=== PATIENT | male | born 1940 | race Caucasian/White ===

== ENCOUNTER → 2017-02-25 | Outpatient (CLI) | payer OTHER, BC ==
[~2017-02-25] MED LIST: DEPO METHYLPREDNISOLONE 40 MG/ML SDV ONE; DEPO METHYLPREDNISOLONE 80 MG/ML SDV ONE; IOPAMIDOL (ISOVUE 370) 100 ML BTL IV ONE; LIDOCAINE 1% 30 ML SDV ONE; NA BICARBONATE 50 MEQ/50 ML VIAL ONE; ROPIVACAINE HCL 150 MG/30 ML INJ ONE
== END ==
LOC: FIMAGING 12:31
PROVIDERS: ATTEND Orthopaedic Surgery
PROC: 3E0U33Z Introduction of Anti-inflammatory into Joints, Percutaneous Approach (ICD-10-PCS; principal; 2017-02-25)
PROC: 3E0U3BZ Introduction of Anesthetic Agent into Joints, Percutaneous Approach (ICD-10-PCS; principal; 2017-02-25)
DX: M16.11 Unilateral primary osteoarthritis, right hip (principal)
CPT/HCPCS: 20610; J1020; J2795; Q9967; J1030; J1040

== ENCOUNTER 2017-03-26 16:20 | Inpatient (IN) | payer OTHER, BC ==
[~2017-03-26 16:20] MED LIST changes: -DEPO METHYLPREDNISOLONE 40 MG/ML SDV ONE; -DEPO METHYLPREDNISOLONE 80 MG/ML SDV ONE; -IOPAMIDOL (ISOVUE 370) 100 ML BTL IV ONE; -LIDOCAINE 1% 30 ML SDV ONE; -NA BICARBONATE 50 MEQ/50 ML VIAL ONE; -ROPIVACAINE HCL 150 MG/30 ML INJ ONE; +fentaNYL 100 MCG/2 ML INJ IVP ONE
[2017-03-26] MEDS ORDERED: fentaNYL 100 MCG/2 ML INJ ONE (16:37)
--- NOTE | 2017-03-26 16:51 | EDPHY ---
H & P Time Seen by Provider: 03/26/17 16:48 HPI/ROS: Chief complaint. Right hip pain HPI. 68-year-old male with history of osteoarthritis right hip and is scheduled for a hip replacement April 27. Patient had a joint injection of ropivacaine and Depo-Medrol under fluoroscopy P on February 25. He got good relief. However over the month patient's pain has gradually increased. This past week he has had increasing trouble walking. Pain is poorly controlled at this point. Patient has been using acetaminophen at home. He maybe had a fever several days ago. The patient has pain in the right groin that is especially worse with movement. He feels that he has mild swelling but no redness. He has no chest discomfort or shortness of breath. No abdominal pain. No urinary symptoms. Patient has been changing walkers and trying new and different walkers to try to help with balance and pain to ambulate ROS Constitutional. Fever 2-3 days ago Eyes. no problems with vision ENT. no sore throat, no nasal drainage Cardiovascular. no chest pain Respiratory. no shortness of breath, no cough Abdominal. no abdominal pain, no nausea/vomiting, no diarrhea . no problems urinating MS. Right hip pain and trouble walking Skin. no rash Lymph. no swollen glands Neuro. Difficult to walk secondary to hip pain Past Medical/Surgical History: Osteoarthritis, Charcot foot, hypothyroid, left hip arthroplasty Social History: , nonsmoker, no alcohol Smoking Status: Never smoked Physical Exam: General Appearance: Alert well-developed male moderate distress vital signs are stable. Currently afebrile Eyes: Pupils equal and round no pallor or injection. ENT, Mouth: Mucous membranes are moist. Respiratory: There are no retractions, lungs are clear to auscultation. Cardiovascular: Regular rate and rhythm. Gastrointestinal: Abdomen is soft and nontender, no masses, bowel sounds normal. Neurological: Awake and alert, sensory and motor exams grossly normal. Skin: Warm and dry, no rashes. Musculoskeletal: Neck is supple nontender. Extremities pain with movement right hip manifesting as pain in the right groin. There is no obvious swelling or erythema. Psychiatric: Patient is oriented X 3, there is no agitation. 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 Fentanyl for pain initially. Dilaudid for pain ED Course/Re-evaluation: Re-evaluation patient more comfortable after pain medication. The patient, his and I discussed imaging study results, treatment plan including need for admission. They expressed understanding I consulted and discussed the case with Dr. Francis, Orthopedics who will see the patient in consult I consulted and discussed the case with , hospitalist, who agrees to the admission Differential Diagnosis: I considered arthritis, degenerative joint disease. The patient appears to have avascular necrosis and now a fracture of the head of the femur. - Data Points Laboratory Results: Laboratory Results 03/26/17 16:29 03/26/17 16:29 Medications Given: Discontinued Medications Fentanyl (Sublimaze) 100 mcg IVP ONCE ONE Stop: 03/26/17 16:16 Last Admin: 03/26/17 16:20 Dose: 100 mcg Hydromorphone HCl (Dilaudid) 1 mg IVP EDNOW ONE Stop: 03/26/17 17:16 Last Admin: 03/26/17 17:40 Dose: 1 mg Hydromorphone HCl (Dilaudid) 1 mg IVP EDNOW ONE Stop: 03/26/17 20:27 Last Admin: 03/26/17 20:28 Dose: 1 mg Ondansetron HCl (Zofran) 4 mg IVP EDNOW ONE Stop: 03/26/17 19:27 Last Admin: 03/26/17 19:30 Dose: 4 mg Departure - Departure Disposition: [facility] Inpatient Acute Condition: Fair
[2017-03-26] MEDS ORDERED: HYDROmorphONE/DILAUDID 1 MG/ML SYR IVP ONE ×2 (17:15→20:26)
[2017-03-26 17:33] LABS: % IMMATURE GRANULYOCYTES 0.7 % (0.0-1.1); ABSOLUTE IMMATURE GRANULOCYTES 0.06 10^3/uL (0.00-0.10); ADD DIFF? NO; ADD MORPH? NO; ADD SCAN? NO; ATYPICAL LYMPHOCYTE FLAG 0 (0-99); FRAGMENT RBC FLAG 0 (0-99); HEMATOCRIT 43.2 % (40.0-51.0); HEMOGLOBIN 14.7 g/dL (13.7-17.5); LEFT SHIFT FLG 10 (0-99); LIPEMIA HEMOLYSIS FLAG 90 (0-99); MEAN CELL HEMOGLOBIN 29.1 pg (27.9-34.1); MEAN CELL VOLUME 85.4 fL (81.5-99.8); PLATELET CLUMPS FLAG 0 (0-99); PLATELET COUNT 242 10^3/uL (150-400); RED BLOOD CELL COUNT 5.06 10^6/uL (4.40-6.38); RED CELL DISTRIBUTION WIDTH 13.3 % (11.5-15.2)
[2017-03-26 17:37] LABS: ANION GAP 13 mEq/L (8-16); CALCIUM 9.6 mg/dL (8.5-10.4); CARBON DIOXIDE 22 mEq/l (22-31); CHLORIDE 101 mEq/L (97-110); CREATININE 0.9 mg/dL (0.7-1.3); GLOMERULAR FILTRATION RATE > 60; GLUCOSE 105 mg/dL (70-100); POTASSIUM 4.6 mEq/L (3.5-5.2); SODIUM 136 mEq/L (134-144)
[2017-03-26 17:57] LABS: SEDIMENTATION RATE 18 MM/HR (0-20)
[2017-03-26] MEDS ORDERED: ONDANSETRON 4 MG/2 ML VIAL IVP ONE (19:26)
[2017-03-26] MEDS ORDERED: ONDANSETRON 4 MG/2 ML VIAL ONE (19:27)
[2017-03-26] MEDS ORDERED: HYDROmorphONE/DILAUDID 1 MG/ML SYR IVP PRN (19:38)
[2017-03-26] MEDS ORDERED: ONDANSETRON 4 MG/2 ML VIAL IVP PRN (19:38)
--- NOTE | 2017-03-26 20:13 | GHP ---
[f rep st] HISTORY AND PHYSICAL DATE OF ADMISSION: 03/26/2017 CHIEF COMPLAINT: Right hip pain. HISTORY: This patient is a 76-year-old male who had a right hip steroid injection [address] Lowe secondary to osteoarthritis. He has a total hip arthroplasty scheduled with Dr. Francis on April 27. Initially, the steroid injection improved his pain, but subsequently, it is recurring. It has progressively worsened over the last week, and he now has trouble walking. He has severe right groin pain, and it became a crisis in the last 24 hours when he presented to the emergency room. At no point has he ever had any trauma or fall. He is otherwise healthy and without any acute complaints. PAST MEDICAL HISTORY: 1. Charcot foot secondary to infection. 2. Hypothyroidism. 3. Osteoarthritis, status post left hip total arthroplasty, right one is pending. MEDICATIONS: Please see computer record for full detailed list. ALLERGIES: No known drug allergies. SOCIAL HISTORY: No smoking. No alcohol. 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 He lives with his . REVIEW OF SYSTEMS: Complete review of systems obtained. Review of systems negative regarding constitutional, HEENT, GI, pulmonary, cardiovascular, , hematology, skin/musculoskeletal, musculoskeletal, endocrine, psych, except for positives and negatives as under HPI. FAMILY HISTORY: His father of colon cancer in his early 60s. His mother lived to be almost 100. PHYSICAL EXAMINATION: GENERAL: Well-developed, well-nourished male in no acute distress. VITAL SIGNS: Temperature 36.8, pulse 76, blood pressure 127/87 , satting 94% on room air. HEENT: Normal conjunctivae. Pupils reactive to light. ENT: Normal ears and nose. Hearing intact. Normal lips and teeth. Oropharynx moist. NECK: Trachea midline. No thyromegaly. CHEST: Normal respiratory effort. LUNGS: Clear to auscultation bilaterally. CARDIOVASCULAR : Regular rate and rhythm. No murmur. No lower extremity edema. ABDOMEN: Soft, nontender. No hepatosplenomegaly. SKIN: Warm, dry, intact without rash. MUSCULOSKELETAL: His left foot has a Charcot deformity, but no evidence of active infection or erythema or drainage. Strength is 5/5 upper and lower extremities. NEUROLOGIC: Cranial nerves intact. Normal sensation to light touch. PSYCHIATRIC: Alert and oriented x3. Normal mood and affect. Normal judgment and insight. Normal memory. LABORATORY DATA: White count 8.7, hematocrit 43.2, platelets 242. Sodium 136, potassium 4.6, chloride 101, bicarb 22, BUN 20, creatinine 0.9, glucose 105. IMAGING PROCEDURE: Hip x-ray shows acute fracture of the right femoral head. I have discussed this case with Dr. Luis Fernando Vargas, emergency room physician. He has notified Dr. Francis regarding this admission. He will see him in consultation. Dr. Francis thinks that he will do surgery this upcoming week, although it will be a difficult problem, given his recent steroid injection. ASSESSMENT AND PLAN: 1. Right hip fracture, atraumatic, status post steroid injection. Dr. Francis to consult. He will eventually go to surgery, but it is a difficult situation, given his recent steroid injection. For now, will admit to the hospital, administer pain control with IV Dilaudid. 2. Charcot foot secondary to previous infection. His foot currently looks good and at baseline without any active disease. 3. Hypothyroidism. Continue Synthroid. 4. Code Status: He requests DNR. 5. Admission Status: Will admit to inpatient. Greater than 2 midnights required, as this is a complex issue. 6. Deep Venous Thrombosis Prophylaxis: He is high risk. Will place him on subcu Lovenox. I do not anticipate that surgery will be tomorrow, per my discussion with Dr. Vargas. /[id number]/MODL MTDD
[2017-03-26] MEDS ORDERED: HYDROmorphONE/DILAUDID 1 MG/ML SYR ONE (20:23)
[2017-03-26] MEDS: ACETAMINOPHEN 1000 MG PO SCH (21:08)
[2017-03-27] MEDS: oxyCODONE IR 5 MG TAB PO PRN ×5 (02:36→20:47)
[2017-03-27] MEDS: LEVOTHYROXINE 75 MCG TAB PO SCH (06:21)
[2017-03-27] MEDS: ACETAMINOPHEN 1000 MG PO SCH ×3 (09:23→19:23)
[2017-03-27] MEDS: ENOXAPARIN 40 MG/0.4 ML SYR SC SCH ×2 (09:24→14:06)
--- NOTE | 2017-03-27 13:15 | HOSPPROG ---
Hospitalist Progress Note Assessment/Plan: Mr Pineda is a 76 y/o male who had a right hip steroid injection approximately a month ago for osteoarthritis. He is to have surgery w Dr Francis in April. Today is my first encounter w the patient. Chart reviewed. *Right hip fracture s/p recent injection one month ago to have surgery with Dr Francis in April spoke w Dr Francis/ he will see [place] tomorrow trial of toe touch weight bearing will await further input from ortho *Charcot foot secondary to infection *Hypothyroidism Synthroid *DVT prophylaxis: LMWH *Plan: Dr Francis to see Tuesday/ due to recent steroid injection, it would be optimal to wait for 6 weeks to help w post op healing. If Chap[place]ito can't ambulate, Dr Francis will discuss options. Subjective: [place] has ongoing right hip pain, painful to sit up and urinate. Objective: Vital Signs Temp Pulse Resp BP Pulse Ox 36.5 C 72 15 132/76 H 95 03/27/17 08:20 03/27/17 08:20 03/27/17 08:20 03/27/17 08:20 03/27/17 08:20 03/26/17 03/27/17 03/28/17 05:59 05:59 05:59 Intake Total 200 Output Total 720 200 Balance -520 -200 - Physical Exam Constitutional: uncomfortable Eyes: PERRL Ears, Nose, Mouth, Throat: hearing normal Cardiovascular: regular rate and rhythym Respiratory: no respiratory distress Gastrointestinal: normoactive bowel sounds Skin: warm Musculoskeletal: other (right leg externally rotated and shortened), No no muscle tenderness (right hip and right groin area) Neurologic: AAOx3 Psychiatric: interacting appropriately, not anxious ICD10 Worksheet Patient Problems: Problems Problem Status Onset Osteoarthritis of hip Acute
[2017-03-27] MEDS ORDERED: MAGNESIUM HYDROXIDE 30 ML UDCUP PO PRN (14:29)
[2017-03-27] MEDS ORDERED: BISACODYL 10 MG SUPP PR PRN (14:29)
[2017-03-27] MEDS ORDERED: LACTULOSE 20 GM/30 ML UDCUP PO PRN (14:29)
[2017-03-27] MEDS: POLYETHYLENE GLYCOL 3350 17 GM PKT PO SCH (15:46)
[2017-03-27] MEDS: SENNOSIDES/DOCUSATE SODIUM TAB PO SCH (19:24)
[2017-03-28] MEDS: oxyCODONE IR 5 MG TAB PO PRN ×5 (02:13→22:16)
[2017-03-28] MEDS: LEVOTHYROXINE 75 MCG TAB PO SCH (05:25)
[2017-03-28] MEDS: SENNOSIDES/DOCUSATE SODIUM TAB PO SCH ×2 (08:16→20:50)
--- NOTE | 2017-03-28 09:41 | HOSPPROG ---
Hospitalist Progress Note Assessment/Plan: Mr Pineda is a 76 y/o male who had a right hip steroid injection approximately a month ago for osteoarthritis. Pain has worsened and he was admitted for further care. *Right hip fracture to have surgery tomorrow w Dr Francis *Charcot foot secondary to infection *Hypothyroidism Synthroid *DVT prophylaxis: LMWH *Plan: NPO after midnight/ hold LMWH, surgery in a.m. Subjective: [place] has no pain as long as he doesn't move. Objective: Vital Signs Temp Pulse Resp BP Pulse Ox 36.8 C 68 16 120/80 93 03/28/17 07:47 03/28/17 07:47 03/28/17 07:47 03/28/17 07:47 03/28/17 07:47 03/27/17 03/28/17 03/29/17 05:59 05:59 05:59 Intake Total 200 1850 Output Total 720 2300 Balance -520 -450 - Physical Exam Constitutional: no apparent distress, appears nourished, not in pain Eyes: PERRL Ears, Nose, Mouth, Throat: hearing normal Cardiovascular: regular rate and rhythym, no murmur, rub, or gallop Respiratory: no respiratory distress Gastrointestinal: normoactive bowel sounds Skin: warm Musculoskeletal: muscular tenderness Neurologic: AAOx3 Psychiatric: interacting appropriately ICD10 Worksheet Patient Problems: Problems Problem Status Onset Osteoarthritis of hip Acute
[2017-03-28] MEDS: ACETAMINOPHEN 1000 MG PO SCH ×3 (10:41→20:29)
[2017-03-28] MEDS: ENOXAPARIN 40 MG/0.4 ML SYR SC SCH ×2 (10:43→10:44)
[2017-03-28] MEDS: POLYETHYLENE GLYCOL 3350 17 GM PKT PO SCH (10:57)
--- NOTE | 2017-03-29 00:44 | GCON ---
[f rep st] CONSULTATION ORTHOPEDIC CONSULTATION REASON FOR CONSULTATION: For evaluation of right hip pain. HISTORY OF PRESENT ILLNESS: The patient is a 76-year-old male well known to me. I provided left hi p replacement 1-2 years ago, has done very well, is, actually, currently on my schedule for a right total hip replacement next month. The patient had a steroid injection approximately 1 month ago, an d then has had increasing pain in the right hip for the past week. He is unable to bear weight for the last couple days, and question whether we should proceed with right total hip arthroplasty due t o intractable pain. The patient has no complaints of any other extremities. Has not had any falls. Denies any trauma. He denies any fevers, chills. PAST MEDICAL HISTORY: Significant for Charcot foot. He has hypothyroidism, osteoarthritis, status post left total hip arthroplasty. MEDICATIONS: Please see computer list. ALLERGIES: No known drug allergies. PHYSICAL EXAMINATION: GENERAL APPEARANCE: The patient is pleasant and cooperative for exam. VITAL SIGNS: Stable. EXTREMITIES: His right lower extremity is felt to be slightly shortened, external ly rotated. He has pain with range of motion. Neurovascularly intact. IMAGING: X-rays are reviewed, which show the displaced femoral head fracture. ASSESSMENT AND PLAN: The patient is a 76-year-old male with a right displaced femoral head fracture , secondary to complication to injection, with possible underlying avascular necrosis with his osteo arthritis. Discussed risks of infection with patient due to his recent cortisone injection, but in light of his inability to mobilize, I recommend proceeding with a right total hip arthroplasty marii manrique, 03/29/2017. This is currently scheduled for 7 a.m. Risks and benefits were discussed with hernan kim including bleeding, infection, damage to nerves and vessels, need for further surgery, risk of blood clots, blood clots going to the lungs, rare things like stroke, heart attack, and , in ad dition to hip replacement dislocation, fracture, and leg length change. The patient expressed under standing, and informed consent was obtained. /[id number]/MODL
[2017-03-29] MEDS: oxyCODONE IR 5 MG TAB PO PRN ×3 (02:19→19:43)
[2017-03-29] MEDS ORDERED: TRANEXAMIC ACID 3,000 MG in NS 50 ML IRR ONE (06:00)
[2017-03-29] MEDS ORDERED: ROPIVACAINE 0.2% 80 MG, EPINEPHrine 0.2 MG, KETOROLAC TROMETHAMINE 30 MG in BAG 0 ML IU ONE (06:00)
[2017-03-29] MEDS ORDERED: ACETAMINOPHEN 325 MG TAB PO ONE (06:00)
[2017-03-29] MEDS ORDERED: FAMOTIDINE 20 MG TAB PO ONE (06:00)
[2017-03-29] MEDS ORDERED: ceFAZolin 2 GM/DEXTROSE 100 ML IV ONE (06:00)
[2017-03-29] MEDS ORDERED: TRANEXAMIC ACID 3,000 MG/50 ML BAG IRR ONE (06:54)
[2017-03-29] MEDS ORDERED: PROPOFOL 200 MG/20 ML VIAL ONE ×2 (07:04)
[2017-03-29] MEDS ORDERED: fentaNYL 100 MCG/2 ML INJ ONE ×3 (07:04→09:25)
[2017-03-29] MEDS ORDERED: LIDOCAINE 2% 100 MG/5 ML SYR ONE (07:06)
[2017-03-29] MEDS ORDERED: METOCLOPRAMIDE 10 MG/2 ML VIAL IVP PRN (07:17)
[2017-03-29] MEDS ORDERED: diphenhydrAMINE 25 MG CAP PO PRN (07:17)
[2017-03-29] MEDS ORDERED: ONDANSETRON 4 MG/2 ML VIAL IVP PRN (07:17)
[2017-03-29] MEDS ORDERED: PHARMACY PAIN CONSULT 1 EA MISC PRN (07:17)
[2017-03-29] MEDS ORDERED: PROMETHAZINE HCL 25 MG SUPPR PR PRN (07:17)
[2017-03-29] MEDS ORDERED: CYCLOBENZAPRINE 10 MG TAB PO PRN (07:17)
[2017-03-29] MEDS ORDERED: TEMAZEPAM 15 MG CAP PO PRN (07:17)
[2017-03-29] MEDS ORDERED: POLYETHYLENE GLYCOL 3350 17 GM PKT PO PRN (07:17)
[2017-03-29] MEDS ORDERED: ONDANSETRON DISINTEGRATING 4 MG TAB PO PRN (07:17)
[2017-03-29] MEDS ORDERED: DIPHENOXYLATE/ATROPINE LOMOTIL 1 TAB PO PRN (07:17)
[2017-03-29] MEDS ORDERED: LR 1,000 ML IV SCH (07:30)
[2017-03-29] MEDS ORDERED: HYDROmorphONE/DILAUDID 2 MG/ML INJ ONE (07:40)
[2017-03-29] MEDS ORDERED: DEXAMETHASONE 4 MG/ML VIAL ONE (07:45)
[2017-03-29] MEDS ORDERED: ONDANSETRON 4 MG/2 ML VIAL ONE ×3 (07:45→09:35)
[2017-03-29] MEDS ORDERED: POVIDONE-IODINE 20 ML in SODIUM CL IRRIG SOLUTION 500 ML IRR ONE (08:00)
[2017-03-29] MEDS ORDERED: CHLORHEXIDINE GLUC HIBICLENS 118 ML BTL TP ONE (08:00)
--- NOTE | 2017-03-29 08:50 | POSTOPPROG ---
Post Op Note Date of Operation: 03/29/17 Surgeon: Pamella Francis City Councilman: Lucille Francis PAc Anesthesiologist: Loraine Anesthesia: LMA Pre-op Diagnosis: R femoral head fx Post-op Diagnosis: same Indication: pain Procedure: R BO Findings: femoral head fx Inf/Abcess present in the surg proc area at time of surgery?: No EBL: 100-500
[2017-03-29] MEDS: ACETAMINOPHEN 1000 MG PO SCH ×3 (11:38→21:32)
[2017-03-29] MEDS: SENNOSIDES/DOCUSATE SODIUM TAB PO SCH ×2 (11:38→20:17)
[2017-03-29] MEDS: POLYETHYLENE GLYCOL 3350 17 GM PKT PO SCH (11:38)
[2017-03-29] MEDS: ACETAMINOPHEN 325 MG TAB PO SCH ×3 (13:24→22:07)
[2017-03-29] MEDS: LEVOTHYROXINE 75 MCG TAB PO SCH (13:24)
[2017-03-29] MEDS: ceFAZolin 2 GM/DEXTROSE 100 ML IV SCH ×2 (14:07→21:32)
[2017-03-29 15:50] LABS: % IMMATURE GRANULYOCYTES 0.6 % (0.0-1.1); ABSOLUTE IMMATURE GRANULOCYTES 0.07 10^3/uL (0.00-0.10); ADD DIFF? NO; ADD MORPH? NO; ADD SCAN? NO; ATYPICAL LYMPHOCYTE FLAG 0 (0-99); FRAGMENT RBC FLAG 0 (0-99); HEMATOCRIT 41.9 % (40.0-51.0); LEFT SHIFT FLG 10 (0-99); LIPEMIA HEMOLYSIS FLAG 80 (0-99); MEAN CELL HEMOGLOBIN 28.9 pg (27.9-34.1); MEAN CELL HEMOGLOBIN CONCENTR. 33.4 g/dL (32.4-36.7); MEAN CELL VOLUME 86.6 fL (81.5-99.8); MEAN PLATELET VOLUME 10.1 fL (8.7-11.7); PLATELET CLUMPS FLAG 0 (0-99); PLATELET COUNT 235 10^3/uL (150-400); RED BLOOD CELL COUNT 4.84 10^6/uL (4.40-6.38); RED CELL DISTRIBUTION WIDTH 13.2 % (11.5-15.2)
[2017-03-29 16:03] LABS: ANION GAP 9 mEq/L (8-16); CALCIUM 8.7 mg/dL (8.5-10.4); CARBON DIOXIDE 23 mEq/l (22-31); CHLORIDE 98 mEq/L (97-110); CREATININE 0.7 mg/dL (0.7-1.3); GLOMERULAR FILTRATION RATE > 60; GLUCOSE 152 mg/dL (70-100); SODIUM 130 mEq/L (134-144)
[2017-03-29] MEDS ORDERED: PETROLAT,WHT/MIN OIL/SOD CHL 3.5 GM OPHT.OINT RTEYE PRN (16:28)
[2017-03-29] MEDS: PETROLAT,WHT/MIN OIL/SOD CHL 3.5 GM OPHT.OINT RTEYE PRN ×2 (17:09→20:20)
--- NOTE | 2017-03-29 17:09 | HOSPPROG ---
Hospitalist Progress Note Assessment/Plan: Mr Pineda is a 76 y/o male who had a right hip steroid injection approximately a month ago for osteoarthritis. Pain has worsened and he was admitted for further care. *Right hip fracture POD #0 for TKA pain was well managed when I evaluated him *hyponatremia recheck labs in a.m. *right eye pain occurred post op lubricant ordered *Charcot foot secondary to infection *Hypothyroidism Synthroid *DVT prophylaxis: LMWH +athrombic pumps *Plan: follow labs in a.m./ dc fluids since taking po. Subjective: [place] is c/o right eye pain. Objective: Vital Signs Temp Pulse Resp BP Pulse Ox 36.6 C 64 14 114/59 L 94 03/29/17 15:15 03/29/17 15:15 03/29/17 15:15 03/29/17 15:15 03/29/17 15:15 Laboratory Results 03/29/17 15:25 03/29/17 15:25 03/28/17 03/29/17 03/30/17 05:59 05:59 05:59 Intake Total 1850 1300 2500 Output Total 2300 820 975 Balance -394 526 9480 - Physical Exam Constitutional: no apparent distress Eyes: other (r eye sclera reddened and painful to the patient/no vision changes) Ears, Nose, Mouth, Throat: hearing normal Cardiovascular: regular rate and rhythym Respiratory: no respiratory distress Gastrointestinal: normoactive bowel sounds Skin: warm Musculoskeletal: muscular tenderness (hip) Neurologic: AAOx3, sensation intact bilaterally, pronator drift Psychiatric: not anxious ICD10 Worksheet Patient Problems: Problems Problem Status Onset Osteoarthritis of hip Acute
[2017-03-29] MEDS: ASPIRIN 325 MG TAB PO SCH (20:17)
[2017-03-29] MEDS: FAMOTIDINE 20 MG TAB PO SCH (20:18)
--- NOTE | 2017-03-29 22:37 | GOP ---
[f rep st] OPERATIVE REPORT DATE OF OPERATION: 03/29/2017 SURGEON: Andrew Francis MD OPERATIONS ASST: ZEINAB Goss ANESTHESIA: Spinal. PREOPERATIVE DIAGNOSIS: Right hip osteoarthritis and femoral head fracture. POSTOPERATIVE DIAGNOSIS: Right hip osteoarthritis and femoral head fracture. PROCEDURE PERFORMED: Right total hip arthroplasty with x-ray. FINDINGS: ESTIMATED BLOOD LOSS: 200 cc. INDICATIONS: The patient has a fracture of the hip which has failed medical management. The patient understands the treatment options including continued non-operative care and has selected surgical intervention. The patient has decided to undergo total hip arthroplasty via the direct anterior approach, understanding the risks of the procedure including, but not limited to, neurovascular injury, infection, persistent pain, component wear and loosening, deep venous thrombosis, pulmonary embolism, limb length inequality, hip instability (including dislocation), and intra-operative fractures. DESCRIPTION OF PROCEDURE: After proper identification of the patient including verification and marking the surgical site, the patient was brought to the operating room and placed in the supine position. All bony prominences were well padded. Anesthesia was induced without complication and intravenous prophylactic antibiotics were administered prior to skin incision. The operative leg was placed in the Trumpf Arch table extension and the well leg in a Yellofin leg cottrell. The patient was prepped and draped in the usual sterile fashion. The C-arm was draped for intra-operative fluoroscopy to check acetabular position, femoral component position including leg length and femoral offset. Attention was then drawn to surgical exposure of the hip. An incision was made with a #10 Bard Toño blade starting 3 cm lateral and 3 cm distal to the anterior superior iliac spine measuring 8-10 cm and coursing distally toward the greater trochanter. The skin and subcutaneous tissues were divided sharply down to the fascia анна. The fascia анна was incised in line with the skin incision exposing the underlying tensor fascia анна muscle. The muscle was bluntly elevated from the fascia and the first extracapsular Cobra retractor was placed laterally at the junction of the superior femoral neck and greater trochanter. The lateral femoral circumflex vessels were identified, cauterized , and divided with the Aquamantys bipolar cautery. The deep investing fascia of the TFL was divided to allow proper mobilization of the muscle preventing damage during the retraction. The reflected head of the rectus femoris muscle was elevated off the anterior hip capsule and a medial Cobra retractor was placed just proximal to the lesser trochanter. The anterior capsulotomy was made sharply from the superolateral acetabulum to the saddle junction of the superior femoral neck and greater trochanter, then coursing inferomedial towards the lesser trochanter. The retractors were then placed in the intracapsular position for femoral neck osteotomy. Corresponding to pre-operative templating, the osteotomy was made with the oscillating saw carefully protecting the greater trochanter and soft tissues. The femoral head was removed from the acetabulum with a corkscrew and confirmed to be fracutured. The Arch table extension was then placed in 40 degrees external rotation. Attention was then drawn to the acetabular preparation. After placement of the anterior and posterior Cobra retractors outside the labrum and intracapsular, the circumferential labrum was removed sharply. The foveal contents were then removed and hemostasis obtained with cautery. The first reamer selected was sized using the removed femoral head. Reaming began with medialization and then commenced in 2 mm increments at 45 degrees of abduction and 15 degrees of anteversion using fluoroscopic navigation. Reaming ceased 1 mm less than the definitive acetabular component and corresponded to the pre-operative templating. The final acetabular component was inserted using fluoroscopy to achieve proper orientation yielding excellent purchase and stability in the acetabulum. The final acetabular liner was then placed and its seating confirmed. Attention was then turned to the femur. The Arch table extension was placed in extension and adduction, delivering the osteotomized femoral neck into the wound. A 2-pronged femoral elevator was placed at the calcar and another at the tip of the greater trochanter. The posterolateral capsule was released with cautery allowing mobilization of the femur lateral and anterior for preparation. The external rotators were visualized and preserved. A curette and rongeur were used to open the starting point for broaching. Serial broaching started with the #0 broach and ended with the broach that exhibited excellent fit in the proximal femur. A change in pitch during mallet strikes was accompanied by the inability to advance the broach any further. The trial reduction was performed and fluoroscopic navigation was utilized to check limb length. Adjustments were made to equalize limb length accordingly. After the final trials were accepted they were removed and the wound was copiously lavaged. The femoral component was seated to the same depth as the final broach and the femoral head was impacted onto the clean trunnion. The hip was then reduced for the final time and once more fluoroscopy was used to check that limb length equality was achieved. The wound was irrigated and closed in layers, the fascia анна with 2-0 Quill, the subcutaneous tissue with 2-0 Quill, and the skin with Dermabond. Sterile dressings were applied. Final sharps and sponge counts were accurate. The patient was then transferred to a hospital bed and brought to the recovery room in stable condition. IMPLANTS: Accolade II, size 7, at 127. Acetabular component, 60 mm Tritanium. The liner is a Trident X3 36 mm. The head is a Biolox Delta 36 mm +7.5. /[id number]/MODL MTDD
[2017-03-30] MEDS: oxyCODONE IR 5 MG TAB PO PRN ×3 (03:16→18:45)
[2017-03-30] MEDS: ACETAMINOPHEN 1000 MG PO SCH (03:44)
[2017-03-30 05:05] LABS: HEMATOCRIT 37.4 % (40.0-51.0); HEMOGLOBIN 12.6 g/dL (13.7-17.5)
[2017-03-30 05:25] LABS: ANION GAP 9 mEq/L (8-16); CALCIUM 8.5 mg/dL (8.5-10.4); CARBON DIOXIDE 24 mEq/l (22-31); CHLORIDE 96 mEq/L (97-110); CREATININE 0.8 mg/dL (0.7-1.3); GLOMERULAR FILTRATION RATE > 60; GLUCOSE 136 mg/dL (70-100); POTASSIUM 4.4 mEq/L (3.5-5.2); SODIUM 129 mEq/L (134-144)
[2017-03-30] MEDS: ACETAMINOPHEN 325 MG TAB PO SCH ×4 (05:41→20:09)
--- NOTE | 2017-03-30 08:46 | SOAPPROG ---
SOAP Progress Note Assessment/Plan: Assessment: [place] is POD 1 s/p R BO ant approach pain management: pain well controlled on oral pain meds VTE ppx: recommend stopping lovenox and starting aspirin 325 mg daily for three weeks. cont thigh high SPIKE hose Anemia: level expected initially postop. asymptomatic Activity precautions: WBAT, NO active ABDuction, NO Ex Rot of leg past 60, must use walker for 6 weeks post op D/c planning: d/c to home once released from PT Plan: 03/30/17 08:44 Subjective: Patient is resting comfortably. expressed some concern that was worried about mobility at home. denies SOB, chest pain and N/V. Objective: Vital Signs Temp Pulse Resp BP Pulse Ox 36.9 C 72 15 138/64 H 90 L 03/30/17 07:44 03/30/17 07:44 03/30/17 07:44 03/30/17 07:44 03/30/17 07:44 Laboratory Results 03/30/17 04:46 03/30/17 04:46 03/29/17 03/30/17 03/31/17 05:59 05:59 05:59 Intake Total 1300 3565 Output Total 820 2325 Balance 480 1240 RLE: incision dressing is clean and dry, NVI, +pf/df ICD10 Worksheet Patient Problems: Problems Problem Status Onset Osteoarthritis of hip Acute
[2017-03-30] MEDS: ASPIRIN 325 MG TAB PO SCH (09:44)
[2017-03-30] MEDS: FAMOTIDINE 20 MG TAB PO SCH ×2 (09:44→20:19)
[2017-03-30] MEDS: SENNOSIDES/DOCUSATE SODIUM TAB PO SCH ×2 (09:45→20:19)
[2017-03-30] MEDS: POLYETHYLENE GLYCOL 3350 17 GM PKT PO SCH (09:50)
[2017-03-30] MEDS: LEVOTHYROXINE 75 MCG TAB PO SCH (12:28)
--- NOTE | 2017-03-30 15:51 | HOSPPROG ---
Hospitalist Progress Note Assessment/Plan: Mr Pineda is a 76 y/o male who had a right hip steroid injection approximately a month ago for osteoarthritis. Pain has worsened and he was admitted for further care. *Right hip fracture POD #1 for TKA pain was well managed *hyponatremia low urine NA tsh stable encourage more oral solute/ will order ensure tid with meals *right eye pain occurred post op lubricant ordered resolved *Charcot foot secondary to infection *Hypothyroidism Synthroid *DVT prophylaxis: LMWH +athrombic pumps *Plan: follow labs in a.m./ he will likely be dc home with home care tomorrow. Subjective: [place] is feeling well overall. Objective: Vital Signs Temp Pulse Resp BP Pulse Ox 36.4 C 77 14 119/73 90 L 03/30/17 13:09 03/30/17 13:09 03/30/17 13:09 03/30/17 13:09 03/30/17 13:09 Laboratory Results 03/30/17 04:46 03/30/17 04:46 03/29/17 03/30/17 03/31/17 05:59 05:59 05:59 Intake Total 1300 3565 Output Total 820 2325 400 Balance 480 1240 -400 - Physical Exam Constitutional: no apparent distress, appears nourished, No not in pain (minmal right hip) Eyes: PERRL Ears, Nose, Mouth, Throat: hearing normal Cardiovascular: regular rate and rhythym Respiratory: no respiratory distress Gastrointestinal: normoactive bowel sounds Skin: warm, normal color Musculoskeletal: generalized weakness, No no muscle tenderness Neurologic: AAOx3 Psychiatric: interacting appropriately, not anxious ICD10 Worksheet Patient Problems: Problems Problem Status Onset Closed fracture head of femur Acute Primary localized osteoarthritis of right hip Acute Osteoarthritis of hip Acute
[2017-03-30] MEDS: ENOXAPARIN 40 MG/0.4 ML SYR SC SCH (17:55)
[2017-03-31] MEDS: oxyCODONE IR 5 MG TAB PO PRN ×2 (03:28→08:12)
[2017-03-31 05:47] LABS: % IMMATURE GRANULYOCYTES 1.1 % (0.0-1.1); ADD DIFF? NO; ADD MORPH? NO; ADD SCAN? NO; ATYPICAL LYMPHOCYTE FLAG 0 (0-99); FRAGMENT RBC FLAG 0 (0-99); HEMATOCRIT 37.2 % (40.0-51.0); HEMOGLOBIN 12.4 g/dL (13.7-17.5); LEFT SHIFT FLG 10 (0-99); LIPEMIA HEMOLYSIS FLAG 80 (0-99); MEAN CELL HEMOGLOBIN 28.7 pg (27.9-34.1); MEAN CELL HEMOGLOBIN CONCENTR. 33.3 g/dL (32.4-36.7); MEAN CELL VOLUME 86.1 fL (81.5-99.8); MEAN PLATELET VOLUME 10.6 fL (8.7-11.7); PLATELET CLUMPS FLAG 0 (0-99); PLATELET COUNT 252 10^3/uL (150-400); RED BLOOD CELL COUNT 4.32 10^6/uL (4.40-6.38); RED CELL DISTRIBUTION WIDTH 13.2 % (11.5-15.2)
[2017-03-31 05:50] LABS: ANION GAP 10 mEq/L (8-16); CALCIUM 8.4 mg/dL (8.5-10.4); CARBON DIOXIDE 24 mEq/l (22-31); CHLORIDE 99 mEq/L (97-110); CREATININE 0.8 mg/dL (0.7-1.3); GLOMERULAR FILTRATION RATE > 60; GLUCOSE 99 mg/dL (70-100); POTASSIUM 4.6 mEq/L (3.5-5.2); SODIUM 133 mEq/L (134-144)
[2017-03-31] MEDS: LEVOTHYROXINE 75 MCG TAB PO SCH (06:23)
[2017-03-31 07:51] VITALS: BP 122/63; PULSE 81; RESP 18; TEMP 98; O2SAT 92
[2017-03-31] MEDS: FAMOTIDINE 20 MG TAB PO SCH (08:13)
[2017-03-31] MEDS: ASPIRIN 325 MG TAB PO SCH (08:13)
[2017-03-31] MEDS: ENOXAPARIN 40 MG/0.4 ML SYR SC SCH (08:16)
[2017-03-31] MEDS: POLYETHYLENE GLYCOL 3350 17 GM PKT PO SCH (08:40)
[2017-03-31] MEDS: SENNOSIDES/DOCUSATE SODIUM TAB PO SCH (08:41)
--- NOTE | 2017-03-31 10:13 | PDIAF ---
- Diagnosis Diagnosis: hip fx Code Status: Do Not Resuscitate - Medication Management Discharge Medications: Medications to Continue on Transfer Levothyroxine [Synthroid 75 mcg (*)] 75 mcg PO DAILY06 01/31/15 [Last Taken 05/07 75 mcg] Acetaminophen [Tylenol 325mg (*)] 650 mg PO Q6HRS #0 tab 03/31/17 [Last Taken Unknown] Aspirin [Aspirin 325 mg (*)] 325 mg PO DAILY tab 03/31/17 [Last Taken Unknown] Polyethylene Glycol 3350 [Miralax 17 gm (*)] 17 gm PO DAILY PRN #0 pkt 03/31/17 [Last Taken Unknown] Sennosides/Docusate Sodium [Senokot-S] 1 - 2 tab PO BID tab 03/31/17 [Last Taken Unknown] celeCOXIB [Celebrex (*)] 200 mg PO DAILY #14 cap 03/31/17 [Last Taken Unknown] oxyCODONE IR [Oxycodone Ir (*)] 5 - 10 mg PO Q4 PRN #14 tab 03/31/17 [Last Taken Unknown] Discharge Medications: Refer to the Discharge Home Medication list for PRN reason. PICC Care - Routine: N/A - Orders Services needed: Physical Therapy, Occupational Therapy Diet Recommendation: no restrictions on diet Diet Texture: Regular Texture Diet - Follow Up Care Current Providers and Referrals: Taty Hernandes MD [Primary Care Provider] - As per Instructions
--- NOTE | 2017-03-31 12:37 | SOAPPROG ---
SOAP Progress Note Assessment/Plan: Assessment: Juan is POD 2 s/p R BO ant approach pain management: pain well controlled on oral pain meds VTE ppx: recommend stopping lovenox and starting aspirin 325 mg daily for three weeks. cont thigh high SPIKE hose Anemia: level expected initially postop. asymptomatic Activity precautions: WBAT, NO active ABDuction, NO Ex Rot of leg past 60, must use walker for 6 weeks post op D/c planning: d/c to home with home health once released from PT Plan: 03/30/17 08:44 03/31/17 12:36 Subjective: juan is doing well today Objective: Vital Signs Temp Pulse Resp BP Pulse Ox 36.7 C 81 18 122/63 H 92 03/31/17 07:50 03/31/17 07:50 03/31/17 07:50 03/31/17 07:50 03/31/17 07:50 Laboratory Results 03/31/17 05:08 03/31/17 05:08 03/30/17 03/31/17 04/01/17 05:59 05:59 05:59 Intake Total 3565 1500 Output Total 2325 900 Balance 1240 600 RLE: incision dressing is clean and dry, NVI, +pf/df ICD10 Worksheet Patient Problems: Problems Problem Status Onset Closed fracture head of femur Acute Primary localized osteoarthritis of right hip Acute Osteoarthritis of hip Acute
--- NOTE | 2017-03-31 13:56 | GDS ---
[f rep st] DISCHARGE SUMMARY DISCHARGE DIAGNOSES: 1. Right total hip arthroplasty. 2. Right hip fracture. 3. Hyponatremia. 4. Charcot foot history. 5. History of hypothyroidism. CONSULTATIONS: Dr. Francis of Orthopedics. PHYSICAL EXAM: GENERAL: The patient is alert. VITAL SIGNS: Afebrile at 36.7, pulse is 81, respir atory rate is 18, blood pressure is 122/63. He is saturating 92% on room air. I have seen and evaluated the patient on the day of discharge. HOSPITAL COURSE: The patient is a 76-year-old male who had a history of right hip pain. He present ed to the emergency room with complaints of progressing hip pain and was noted to have: 1. Right hip fracture. This is atraumatic in nature and status post steroid injection. During thi s hospitalization, he received a consultation from Dr. Francis. Surgical intervention was perform ed with a right total hip arthroplasty. The patient is doing well in the postoperative setting. He has been evaluated by Physical Therapy, as well as Occupational Therapy. 2. Hyponatremia. This was stable prior to disposition. 3. History of hypothyroidism. His medications have been continued. DISPOSITION: The patient will be discharged home with home health care, physical therapy and occupa tional therapy. I have reviewed his disposition with the bottle caser, as well as the patient and h is family; they are in agreement with this plan. Followup will be with Dr. Francis in the outpatient setting, as well as the patient's primary care physician. There are no pending studies. DISCHARGE MEDICATIONS: Please refer to EMR form. I have not provided the patient prescriptions exc ept for the notable Celebrex, as well as oxycodone IR. He will continue aspirin daily for DVT proph ylaxis as recommended by Dr. Francis. I have spent greater than 35 minutes in the care, coordination, and management of patient's disposit ion. /[id number]/MODL
== END 2017-03-31 12:54 | disposition home health service (06) | DRG 470 ==
LOC: EDUNIT# → F3N 20:39
PROVIDERS: ADMIT Internal Medicine; ATTEND Internal Medicine
PROC: 0SR904Z Replacement of Right Hip Joint with Ceramic on Polyethylene Synthetic Substitute, Open Approach (ICD-10-PCS; principal; 2017-03-29 07:15)
DX: M84.75 Atypical femoral fracture (principal); T38.0X5A Adverse effect of glucocorticoids and synthetic analogues, initial encounter; A52.16 Charcot's arthropathy (tabetic); E87.1 Hypo-osmolality and hyponatremia; H57.11 Ocular pain, right eye; M16.11 Unilateral primary osteoarthritis, right hip; E03.9 Hypothyroidism, unspecified; Z96.642 Presence of left artificial hip joint; Z66 Do not resuscitate
CPT/HCPCS: 97116-GP; 97161-GP; 97164-GP; 97165-GO; 97168-GO; 97530-GO; 97530-GP; G8978-GP-CJ; G8978-GP-CK; G8979-GP-CI; G8980-GP-CI; G8987-GO-CI; G8987-GO-CJ; G8987-GO-CK; G8988-GO-CI; G8989-GO-CI; J0171; J0690; J1100; J1170; J1650; J1885; J2001; J2405; J2704; J2795; J3010

== ENCOUNTER 2017-04-14 16:43 | Inpatient (IN) | payer OTHER, BC ==
--- NOTE | 2017-04-14 17:09 | EDPHY ---
H & P HPI/ROS: CHIEF COMPLAINT: Left foot infection HISTORY OF PRESENT ILLNESS: The patient is a 76-year-old male, sent here by Dr. Clemente's office for left foot infection. The patient developed swelling to the left foot 4 days ago. The swelling started to extend up the left leg. He developed erythema and now has an open wound to the plantar aspect of his greater toe. The patient has had intermittent chills for the past few days. He has history of cellulitis to his left leg in 2011 and has not had an issue since. The patient had a right hip replacement two weeks ago and reports no further pain to the right leg. He denies shortness of breath or cough. REVIEW OF SYSTEMS: A comprehensive 10 point review of systems is otherwise negative aside from elements mentioned in the history of present illness. Past Medical/Surgical History: Left hip replacement. Right hip replacement 2 weeks ago. Left foot cellulitis 2011. Hypothyroid. Osteoarthritis. Social History: . Smoking Status: Never smoked Physical Exam: General Appearance: Alert, pleasant Eyes: Pupils equal and round, no conjunctival pallor or injection ENT, Mouth: Mucous membranes moist Neck: Normal inspection Respiratory: Lungs are clear to auscultation Cardiovascular: Regular rate and rhythm Gastrointestinal: Abdomen is soft and non-tender Neurological: A&O, nonfocal, normal gait Skin: Warm and dry, no rash Extremities: Erythema on the dorsum of the left foot extends up to the lower leg. First toe with open wound to the plantar aspect. diffuse swelling of the entire lower leg. Psychiatric: Mood and affect normal Constitutional: Initial Vital Signs Temperature (C) 37 C 04/14/17 16:49 Heart Rate 67 04/14/17 16:49 Respiratory Rate 14 04/14/17 16:49 Blood Pressure 124/71 H 04/14/17 16:49 O2 Sat (%) 94 04/14/17 16:49 O2 Delivery Mode Room Air Allergies/Adverse Reactions: No Known Allergies Allergy (Verified 05/07/12 08:21) Home Medications: Medication Instructions Recorded Acetaminophen [Tylenol ES 500 mg 500 mg PO BID PRN 04/14/17 (*)] Aspirin [Aspirin 325 mg (*)] 325 mg PO DAILY 04/14/17 Herbals/Supplements -Info Only 1 ea PO DAILY 04/14/17 Levothyroxine [Synthroid 75 mcg 75 mcg PO DAILY@03 04/14/17 (*)] Medical Decision Making ED Course/Re-evaluation: The patient was sent by Dr. Clemente for left foot infection. He had right hip replacement two weeks ago with no complications. Over the past 4 days patient has noticed increased swelling, redness, and pain to the left foot and leg. Patient's foot appears cellulitic. On exam he has erythema on the dorsum of the left foot extends up to the lower leg. First toe has open wound to the plantar aspect. Diffuse swelling of the entire lower leg. Plan for ultrasound to look for DVT. MRI of the left foot ordered to rule out a deep infection. The patient does not meet SIRS criteria. 5:30 p.m.: I consulted the hospitalist team, the patient will be admitted to Dr. Anthony. Blood cultures drawn and Ancef 1 g IV given. The patient remained stable throughout his emergency department stay. Differential Diagnosis: Differential diagnosis includes though not limited to cellulitis, osteomyelitis , abscess, DVT, sepsis. - Data Points Laboratory Results: Laboratory Results 04/14/17 17:03 04/14/17 17:03 Medications Given: Discontinued Medications Furosemide (Lasix Injection) 20 mg IVP ONCE ONE Stop: 04/14/17 19:26 Last Admin: 04/14/17 19:44 Dose: 20 mg Cefazolin Sodium/Dextrose (Ancef 1 Gm (Premix)) 50 mls @ 200 mls/hr IV EDNOW ONE PRN Reason: Protocol Stop: 04/14/17 17:24 Last Admin: 04/14/17 17:53 Dose: 50 mls Departure - Departure Disposition: [facility] Acute Clinical Impression: Cellulitis of left foot Condition: Fair Report Scribed for: Shayla Renee Report Scribed by: Rosetta Moncada Date of Report: 04/14/17 Time of Report: 17:10 Physician Review and Approval Statement: 04/14/17 17:10 Portions of this note were transcribed by a medical lab technician. I personally performed the history, physical exam, and medical decision-making; and confirmed the accuracy of the information in the transcribed note.
[2017-04-14 17:16] LABS: % IMMATURE GRANULYOCYTES 1.1 % (0.0-1.1); ADD DIFF? NO; ADD MORPH? NO; ADD SCAN? NO; ATYPICAL LYMPHOCYTE FLAG 30 (0-99); FRAGMENT RBC FLAG 0 (0-99); HEMATOCRIT 35.8 % (40.0-51.0); HEMOGLOBIN 11.8 g/dL (13.7-17.5); LEFT SHIFT FLG 0 (0-99); LIPEMIA HEMOLYSIS FLAG 80 (0-99); MEAN CELL HEMOGLOBIN 28.6 pg (27.9-34.1); MEAN CELL VOLUME 86.7 fL (81.5-99.8); MEAN PLATELET VOLUME 9.9 fL (8.7-11.7); PLATELET CLUMPS FLAG 0 (0-99); PLATELET COUNT 299 10^3/uL (150-400); RED BLOOD CELL COUNT 4.13 10^6/uL (4.40-6.38); RED CELL DISTRIBUTION WIDTH 13.9 % (11.5-15.2)
[2017-04-14 17:35] LABS: ANION GAP 7 mEq/L (8-16); CALCIUM 8.7 mg/dL (8.5-10.4); CARBON DIOXIDE 23 mEq/l (22-31); CHLORIDE 105 mEq/L (97-110); CREATININE 0.7 mg/dL (0.7-1.3); GLOMERULAR FILTRATION RATE > 60; GLUCOSE 94 mg/dL (70-100); POTASSIUM 4.5 mEq/L (3.5-5.2); SODIUM 135 mEq/L (134-144)
[2017-04-14] MEDS ORDERED: FUROSEMIDE 20 MG/2 ML VIAL IVP ONE (19:25)
[2017-04-14] MEDS ORDERED: HYDROCODONE/APAP 5/325 TAB PO PRN (20:24)
[2017-04-14] MEDS ORDERED: oxyCODONE IR 5 MG TAB PO PRN (20:24)
[2017-04-14] MEDS ORDERED: ONDANSETRON DISINTEGRATING 4 MG TAB PO PRN (20:24)
[2017-04-14] MEDS ORDERED: ONDANSETRON 4 MG/2 ML VIAL IVP PRN (20:24)
[2017-04-14] MEDS ORDERED: ACETAMINOPHEN 325 MG TAB PO PRN (20:24)
[2017-04-14] MEDS ORDERED: GADOBUTROL 10 ML VIAL IVP ONE (20:51)
--- NOTE | 2017-04-14 20:59 | GHP ---
[f rep st] HISTORY AND PHYSICAL DATE OF ADMISSION: 04/14/2017 CHIEF COMPLAINT: Left leg swelling and erythema. HISTORY OF PRESENT ILLNESS: This is a 76-year-old male, who was admitted to the hospital 3 weeks ag o for hip pain, and underwent right hip arthroplasty. He states he has had some bilateral edema ess entially since the operation, but over the last 3 days it has worsened significantly on the left, an d is associated with worsening erythema. He has not had any fevers or chills. He does have a Charc ot foot deformity on that side. No nausea or vomiting. He does have some diarrhea, though. REVIEW OF SYSTEMS: A 10-point review of systems obtained; other than stated above, was negative. PAST MEDICAL HISTORY: 1. Hypothyroidism. 2. Bilateral hip replacements with the right just 2 weeks ago. 3. Left foot cellulitis and Charcot foot deformity. SOCIAL HISTORY: No smoking or alcohol. 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 FAMILY HISTORY: Father of colon cancer in his 60s. PHYSICAL EXAMINATION: VITAL SIGNS: Afebrile. Blood pressure is 140/77, heart rate 69, oxygen satu ration 94% on room air. GENERAL: The patient is well developed, in no apparent distress. HEENT: Nonicteric sclerae. Extraocular muscles intact. Moist mucous membranes. NECK: Supple. No thyrom egaly. LUNGS: Good effort. Clear to auscultation bilaterally. CARDIOVASCULAR: Regular rate and rhythm. No murmurs, gallops. ABDOMEN: Positive bowel sounds. Soft, nontender, nondistended. No hepatosplenomegaly. EXTREMITIES: 2+ pedal edema, a little bit worse on the left. There is erythem a extending to the mid amezcua. There is significant onychomycosis and a break in the skin of the big toe. NEUROLOGIC: Alert and oriented x3. Moving all 4 extremities equally. PSYCHIATRIC: Normal mo od and affect. LABORATORY DATA: White count 9, hemoglobin 11. Lactic acid is normal. Chemistries normal. Ultras ound does not show any DVT. ASSESSMENT: This is a 76-year-old male with left lower extremity cellulitis. 1. Left lower extremity cellulitis. The patient was given Ancef in the emergency department. I th ink we will continue this and see if he improves with that. We will go with a little bit of a highe r dose of Ancef. If there is no improvement by tomorrow, then might need to switch to vancomycin. Probably the etiology of this was venous stasis and lower extremity edema postoperatively, along wit h his onychomycosis. 2. Lower extremity edema. The patient does not have any history of congestive heart failure. We w ill go ahead and get an echocardiogram in the morning. I am going to give him some Lasix as well. 3. Hypothyroidism. 4. Recent hip replacement. 5. Deep venous thrombosis prophylaxis. Start Lovenox. /[id number]/MODL
[2017-04-14] MEDS: ceFAZolin 2 GM/DEXTROSE 100 ML IV SCH (23:00)
[2017-04-15] MEDS: LEVOTHYROXINE 75 MCG TAB PO SCH (04:00)
[2017-04-15 05:08] LABS: % IMMATURE GRANULYOCYTES 1.2 % (0.0-1.1); ABSOLUTE IMMATURE GRANULOCYTES 0.09 10^3/uL (0.00-0.10); ADD DIFF? NO; ADD MORPH? NO; ADD SCAN? NO; ATYPICAL LYMPHOCYTE FLAG 40 (0-99); FRAGMENT RBC FLAG 0 (0-99); HEMATOCRIT 34.7 % (40.0-51.0); HEMOGLOBIN 11.4 g/dL (13.7-17.5); LEFT SHIFT FLG 10 (0-99); LIPEMIA HEMOLYSIS FLAG 80 (0-99); MEAN CELL HEMOGLOBIN 28.6 pg (27.9-34.1); MEAN CELL HEMOGLOBIN CONCENTR. 32.9 g/dL (32.4-36.7); MEAN PLATELET VOLUME 9.9 fL (8.7-11.7); PLATELET CLUMPS FLAG 0 (0-99); PLATELET COUNT 284 10^3/uL (150-400); RED BLOOD CELL COUNT 3.99 10^6/uL (4.40-6.38); RED CELL DISTRIBUTION WIDTH 13.9 % (11.5-15.2)
[2017-04-15 05:14] LABS: ALANINE AMINOTRANSFERASE 42 IU/L (21-72); ALBUMIN 3.1 g/dL (3.5-5.0); ALKALINE PHOSPHATASE 159 IU/L (38-126); ANION GAP 10 mEq/L (8-16); ASPARTATE AMINOTRANSFERASE 34 IU/L (17-59); BILIRUBIN,TOTAL 0.7 mg/dL (0.1-1.4); CALCIUM 8.7 mg/dL (8.5-10.4); CARBON DIOXIDE 23 mEq/l (22-31); CHLORIDE 106 mEq/L (97-110); CREATININE 0.8 mg/dL (0.7-1.3); GLOMERULAR FILTRATION RATE > 60; GLUCOSE 82 mg/dL (70-100); POTASSIUM 4.4 mEq/L (3.5-5.2); SODIUM 139 mEq/L (134-144)
[2017-04-15] MEDS: ceFAZolin 2 GM/DEXTROSE 100 ML IV SCH ×3 (05:56→20:51)
--- NOTE | 2017-04-15 08:31 | SOAPPROG ---
SOAP Progress Note Assessment/Plan: Assessment: Left great toe infection foot cellultis Plan: On his exam today I was able to express purulence out of the tip of the great toe. He still is quite a bit erythema around his great toe. The erythema on the remainder his foot does look better with elevation and Ancef. We'll keep him nothing by mouth I'll plan on taking him to the operating room for partial great toe amputation for resumed osteomyelitis given the purulence coming out of the tip of the toe. The MRI failed to show the bone at the distal phalanx very well. He does not have any other osteomyelitis or abscess on MRI. We'll keep him on Ancef we will take cultures the operating room 04/15/17 08:19 Subjective: minimal pain Objective: Vital Signs Temp Pulse Resp BP Pulse Ox 36.9 C 64 16 125/71 H 91 L 04/15/17 07:15 04/15/17 07:15 04/15/17 07:15 04/15/17 07:15 04/15/17 07:15 Laboratory Results 04/15/17 04:15 04/15/17 04:15 04/14/17 04/15/17 04/16/17 05:59 05:59 05:59 Intake Total 50 Output Total 1950 Balance -1900 I was able to express at the tip of the great this was significant. he has significant erythema at the great toe His erythema on the foot has improved ICD10 Worksheet Patient Problems: Problems Problem Status Onset Cellulitis of left foot Acute Closed fracture head of femur Acute Osteoarthritis of hip Acute Primary localized osteoarthritis of right hip Acute
[2017-04-15] MEDS: FUROSEMIDE 20 MG/2 ML VIAL IVP SCH ×2 (08:39→16:51)
[2017-04-15] MEDS ORDERED: ENOXAPARIN 40 MG/0.4 ML SYR SC SCH (09:00)
[2017-04-15] MEDS ORDERED: ASPIRIN 325 MG TAB PO SCH (09:00)
--- NOTE | 2017-04-15 11:33 | HOSPPROG ---
Hospitalist Progress Note Assessment/Plan: 76 yo male with recent right hip arthroplasty admitted for left leg and foot cellulitis and MRI c/w left great toe OM. Will go to surgery today for partial amputation. Is on Cefazolin with improvement of the cellulitis. #Left great toe OM #left leg and foot cellulitis: improving on Cefazolin #Pedal edema, unclear etiology. TTE is pending. On scheduled Lasix #Recent Right Hip Arthroplasty. No acute issues Plan: Surgery today Cont Ancef Cont Lasix Await TTE Will check A1C Lovenox for DVT proph This is my first encounter with this patient. Subjective: no complaints. Will have partial great toe amputation today Objective: Vital Signs Temp Pulse Resp BP Pulse Ox 36.6 C 69 20 128/73 H 93 04/15/17 11:04 04/15/17 11:04 04/15/17 11:04 04/15/17 11:04 04/15/17 11:04 Laboratory Results 04/15/17 04:15 04/15/17 04:15 04/14/17 04/15/17 04/16/17 05:59 05:59 05:59 Intake Total 50 Output Total 1950 1100 Balance -1900 -1100 - Physical Exam Constitutional: no apparent distress, appears nourished, not in pain Eyes: PERRL, EOMI Ears, Nose, Mouth, Throat: moist mucous membranes, ears appear normal Cardiovascular: regular rate and rhythym, no murmur, rub, or gallop Respiratory: no respiratory distress, no rales or rhonchi Gastrointestinal: normoactive bowel sounds Skin: warm, other (left Leg: swelling, erythema has improved. left foot: deferred) Neurologic: AAOx3 Psychiatric: interacting appropriately, not anxious, not encephalopathic ICD10 Worksheet Patient Problems: Problems Problem Status Onset Cellulitis of left foot Acute Closed fracture head of femur Acute Osteoarthritis of hip Acute Primary localized osteoarthritis of right hip Acute
--- NOTE | 2017-04-15 13:11 | ECHO ---
[id number] + + [address] : : [place] [address] : : [phone] + + Adult Echocardiographic Report + -------+ :Name: FIFI EDGAR SStudy Date: 04/15/2017 09:55 AM : : Hospital Admission Number: [id number] Locati on: 340: :: 1940 Gender: Male Height: 61 in : :Age: 76 yrs Race: WH Weight: 200 lb : :Reason For Study: edema : : BSA: 1.9 meter s2 : :History: toe infection, recent hip replacement, edema : + -------+ MMode/2D Measurements \T\ Calculations IVSd: 1.2 cm RVDd: 3.8 cm FS: 43.9 % Ao root diam: LVPWd: 1.3 cm LVIDd: 3.7 cm EDV(Teich): 3.7 cm LVIDs: 2.1 cm 58.4 ml ESV(Teich): 14.1 ml EF(Teich): 75.9 % LVLd ap4: 9.9 cm SV(MOD-sp4): EDV(MOD-sp4): 96.0 ml 128.0 ml LVLs ap4: 7.4 cm ESV(MOD-sp4): 32.0 ml EF(MOD-sp4): 75.0 % Normal Measurement Values: + + :LVIDd (3.5-5.7cm) IVSd (0.6-1.1cm) LVPWd (0.6-1.1cm) Aortic Root (2.0-3.7cm)Left Atrium (1.5-4.0cm): :LV Vol(d) (76-115ml) LV Vol(s) (29-48ml) Ejec Fraction (50-65%)PV Kobi (0.6- 1.2m/s) TV Kobi (0.4-1.0m/s) : :MV E Kobi (0.8-1.0m/s)MV A Kobi (0.3-1.0m/s)LVOT Kobi (0.7-1.2m/s) Asc Ao Kobi ( 0.9-1.8m/s) : + + Doppler Measurements \T\ Calculations Ao V2 max: LV V1 max: PA V2 max: TR max kobi: 131.0 cm/sec 79.5 cm/sec 65.8 cm/sec 254.6 cm/sec Ao max P.9 mmHgLV V1 max PG: PA max PG: TR max P.9 mmHg 2.5 mmHg 1.7 mmHg RAP systole: 5.0 mmHg RVSP(TR): 30.9 mmHg Left Ventricle The left ventricle is normal in size and function. There is mild to moderate concentric left ventricular hypertrophy. Ejection Fraction = 75%. Diastolic function is indeterminate. No regional wall motion abnormalities noted. Right Ventricle The right ventricle is normal in size and function. Atria The Left Atrial Volume is 46 ml/m2. The left atrium is moderately dilated. The right atrium is borderline dilated. Mitral Valve The anterior mitral is thickened and mildly shaggy in appearance. There is no mitral valve stenosis. There is mild mitral regurgitation. Tricuspid Valve The tricuspid valve is normal in structure and function. There is no tricuspid stenosis. There is mild tricuspid regurgitation. Right ventricular systolic pressure is 31mmHg. Aortic Valve The aortic valve is trileaflet. Mild Aortic Valve Calcification. Small mobile echodensity noted. Small vegetation cannot be excluded. There is no aortic stenosis. Mild aortic regurgitation. Pulmonic Valve The pulmonic valve is normal in structure and function. Great Vessels The aortic root is normal size. Pericardium/Pleural There is no pericardial effusion. Conclusion A two-dimensional transthoracic echocardiogram with M-mode and Doppler was performed. Technically difficult parasternal window. The left ventricle is normal in size and function. There is mild to moderate concentric left ventricular hypertrophy. Ejection Fraction = 75%. Diastolic function is indeterminate. There are no regional wall motion abnormalities. The Left Atrial Volume is 46 ml/m2. The left atrium is moderately dilated. The right atrium is borderline dilated. Trleaflet aortic valve with mild sclerosis. There is a small mobile echodensity noted likely a lambl's excrescence. Vegetation cannot be excluded. Mild aortic regurgitation. The anterior mitral is thickened and mildly shaggy in appearance. There is mild mitral regurgitation. There is mild tricuspid regurgitation. Right ventricular systolic pressure is 31mmHg. These findings are suspicious for SBE. Consider ELVIA. Final Reading Physician: Shimon Rojas signed on 04/15/2017 01:10 PM Ordering Physician: Rubén Anthony Performed By: Vicenta Fam
[2017-04-15] MEDS ORDERED: LACTULOSE 20 GM/30 ML UDCUP PO PRN (14:10)
[2017-04-15] MEDS ORDERED: BISACODYL 10 MG SUPP PR PRN (14:10)
[2017-04-15] MEDS ORDERED: MAGNESIUM HYDROXIDE 30 ML UDCUP PO PRN (14:10)
[2017-04-15] MEDS ORDERED: MIDAZOLAM 2 MG/2 ML VIAL ONE (15:04)
[2017-04-15] MEDS ORDERED: fentaNYL 100 MCG/2 ML INJ ONE (15:05)
[2017-04-15] MEDS ORDERED: PROPOFOL/EMULSION 500 MG/50 ML BOTTLE IV ONE (15:06)
[2017-04-15] MEDS ORDERED: BUPIVACAINE 0.5% 30 ML SDV ONE (15:07)
--- NOTE | 2017-04-15 16:12 | POSTOPPROG ---
Post Op Note Date of Operation: 04/15/17 Surgeon: Jass Clemente Orthodontic Assistant: none Anesthesiologist: Esequiel Pre-op Diagnosis: left toe osteomylitis Post-op Diagnosis: same Indication: above Procedure: Left toe great toe amp Inf/Abcess present in the surg proc area at time of surgery?: Yes Depth: Deep Incisional (Fascial) EBL: 50-100
[2017-04-15] MEDS: SENNOSIDES/DOCUSATE SODIUM TAB PO SCH (20:51)
--- NOTE | 2017-04-15 22:12 | GOP ---
[f rep st] OPERATIVE REPORT DATE OF OPERATION: 04/15/2017 SURGEON: Jass Clemente MD TAKE OUT WAITER: None. ANESTHESIA: General. PREOPERATIVE DIAGNOSIS: Left great toe enid osteomyelitis infection and leg cellulitis as well as Charcot. POSTOPERATIVE DIAGNOSIS: Left great toe enid osteomyelitis infection and leg cellulitis as well as Charcot. PROCEDURE PERFORMED: 1. Left great toe amputation of distal phalanx. 2. Left great toe irrigation and debridement down to bone and cultures. FINDINGS: Purulence at the tip of the great toe and soft bone consistent with osteomyelitis. SPECIMENS: Toe for pathology, bone cultures, as well as swab cultures of the purulence. ESTIMATED BLOOD LOSS: 5 mL. INDICATIONS: A 76-year-old male with left total hip and a recent right total hip. He presented to [facility]. He had massive cellulitis of his foot that had developed recently. I sa w him in the clinic and I sent him to the hospital for MRI evaluation and IV antibiotics. I felt th at he would likely need a surgery given the purulence from his great toe. The MRI showed that the o steomyelitis was confined to the end of his great toe and the rest of his toe was consistent celluli tis. I counseled him on the risks and benefits of operative intervention for an amputation of this with cultures, irrigation, debridement and washout. He elected to proceed. Informed consent was ob tained. All questions were answered. He was marked preoperatively. DESCRIPTION OF PROCEDURE: He was taken to the operative suite, anesthesia was induced. He was ster ilely prepped and draped in normal fashion. The tourniquet was inflated for a total of [address] elevating the extremity. I opened up the distal wound and large amounts of purulence came out a nd this was cultured. I made an elliptical incision around the toe and removed this and performed d isarticulation at the IP joint. I did rongeur a portion the distal bone and sent this as a separate culture. I thoroughly irrigated with normal saline. Let the tourniquet down and obtained hemostas is and closed this obtaining good closure. He was placed in well-padded dressing, taken to PACU in stable condition. COMPLICATIONS: None. DRAINS: None. /[id number]/MODL
[2017-04-16] MEDS: ceFAZolin 2 GM/DEXTROSE 100 ML IV SCH ×3 (04:45→21:02)
[2017-04-16] MEDS: LEVOTHYROXINE 75 MCG TAB PO SCH (04:45)
[2017-04-16] MEDS: POLYETHYLENE GLYCOL 3350 17 GM PKT PO PRN ×2 (04:46→18:04)
[2017-04-16 05:49] LABS: ANION GAP 10 mEq/L (8-16); CALCIUM 8.4 mg/dL (8.5-10.4); CARBON DIOXIDE 23 mEq/l (22-31); CHLORIDE 104 mEq/L (97-110); CREATININE 0.8 mg/dL (0.7-1.3); GLOMERULAR FILTRATION RATE > 60; GLUCOSE 130 mg/dL (70-100); POTASSIUM 3.8 mEq/L (3.5-5.2); SODIUM 137 mEq/L (134-144)
[2017-04-16 05:58] LABS: % IMMATURE GRANULYOCYTES 2.4 % (0.0-1.1); ABSOLUTE IMMATURE GRANULOCYTES 0.17 10^3/uL (0.00-0.10); ADD DIFF? NO; ADD MORPH? NO; ADD SCAN? NO; ATYPICAL LYMPHOCYTE FLAG 30 (0-99); FRAGMENT RBC FLAG 0 (0-99); HEMATOCRIT 33.4 % (40.0-51.0); HEMOGLOBIN 10.9 g/dL (13.7-17.5); LEFT SHIFT FLG 10 (0-99); LIPEMIA HEMOLYSIS FLAG 80 (0-99); MEAN CELL HEMOGLOBIN 28.3 pg (27.9-34.1); MEAN CELL HEMOGLOBIN CONCENTR. 32.6 g/dL (32.4-36.7); MEAN CELL VOLUME 86.8 fL (81.5-99.8); MEAN PLATELET VOLUME 10.2 fL (8.7-11.7); PLATELET CLUMPS FLAG 0 (0-99); PLATELET COUNT 290 10^3/uL (150-400); RED BLOOD CELL COUNT 3.85 10^6/uL (4.40-6.38)
[2017-04-16] MEDS: FUROSEMIDE 20 MG/2 ML VIAL IVP SCH ×2 (08:08→14:53)
[2017-04-16] MEDS: SENNOSIDES/DOCUSATE SODIUM TAB PO SCH ×3 (08:12→21:02)
--- NOTE | 2017-04-16 14:12 | HOSPPROG ---
Hospitalist Progress Note Assessment/Plan: 76 yo male with recent right hip arthroplasty admitted for left leg and foot cellulitis and MRI c/w left great toe OM. This is my first encounter with the pt. Chart reviewed. #Left great toe OM POD #1 toe amp cont current treatment await cultures #left leg and foot cellulitis: improving on Cefazolin #Pedal edema, unclear etiology. TTE stable. On scheduled Lasix #Recent Right Hip Arthroplasty. No acute issues #Constipation cont bowel therapy Plan: Cont Ancef Cont Lasix Lovenox for DVT proph Subjective: Up in chair. Eating lunch. Feels well. C/O constipation. Objective: Vital Signs Temp Pulse Resp BP Pulse Ox 37 C 68 14 109/66 94 04/16/17 12:00 04/16/17 12:00 04/16/17 12:00 04/16/17 12:00 04/16/17 12:00 Microbiology 04/15/17 15:35 Gram Stain - Final Toe - Eswab 04/15/17 15:35 Gram Stain - Final Toe - Other Laboratory Results 04/16/17 05:20 04/16/17 05:20 04/15/17 04/16/17 04/17/17 05:59 05:59 05:59 Intake Total 50 970 Output Total 1950 1100 Balance -1900 -130 - Physical Exam Constitutional: no apparent distress, appears nourished, not in pain Eyes: PERRL, anicteric sclera, EOMI Ears, Nose, Mouth, Throat: moist mucous membranes, hearing normal, ears appear normal Cardiovascular: No JVD, No tachycardia, No edema Respiratory: no respiratory distress, no rales or rhonchi, reduced air movement Gastrointestinal: No tenderness, No ascites, No guarding Skin: warm, normal color, No erythema Musculoskeletal: no joint effusions, muscular tenderness, generalized weakness Neurologic: AAOx3 Psychiatric: interacting appropriately, not anxious, not encephalopathic ICD10 Worksheet Patient Problems: Problems Problem Status Onset Cellulitis of left foot Acute Closed fracture head of femur Acute Primary localized osteoarthritis of right hip Acute Osteoarthritis of hip Acute
--- NOTE | 2017-04-16 16:07 | SOAPPROG ---
SOAP Progress Note Assessment/Plan: Assessment: Left great toe infection foot cellultis s/p left great toe distal phalax amputation 04/16 Plan: Improving on Ancef Consulted ID for final abx rec wbat in post op shoe remain in dressing 04/15/17 08:19 04/16/17 16:06 Subjective: improving Objective: Vital Signs Temp Pulse Resp BP Pulse Ox 37 C 68 14 109/66 94 04/16/17 12:00 04/16/17 12:00 04/16/17 12:00 04/16/17 12:00 04/16/17 12:00 Microbiology 04/15/17 15:35 Gram Stain - Final Toe - Other 04/15/17 15:35 Gram Stain - Final Toe - Eswab Laboratory Results 04/16/17 05:20 04/16/17 05:20 04/15/17 04/16/17 04/17/17 05:59 05:59 05:59 Intake Total 50 970 Output Total 1950 1100 Balance -1900 -130 dressing cdi erythema improved ICD10 Worksheet Patient Problems: Problems Problem Status Onset Cellulitis of left foot Acute Closed fracture head of femur Acute Osteoarthritis of hip Acute Primary localized osteoarthritis of right hip Acute
[2017-04-17] MEDS: ceFAZolin 2 GM/DEXTROSE 100 ML IV SCH ×3 (05:01→20:40)
[2017-04-17] MEDS: LEVOTHYROXINE 75 MCG TAB PO SCH (05:01)
--- NOTE | 2017-04-17 07:49 | SOAPPROG ---
SOAP Progress Note Assessment/Plan: Assessment: Left great toe infection foot cellultis s/p left great toe distal phalax amputation 04/16 Plan: Improving on Ancef Consulted ID for final abx rec wbat in post op shoe March d/c once antibiotic plan established has f/u appt scheduled already on 04/15/17 08:19 04/16/17 16:06 04/17/17 07:48 Subjective: no pain Objective: Vital Signs Temp Pulse Resp BP Pulse Ox 36.4 C 74 16 124/76 H 90 L 04/16/17 23:50 04/16/17 23:50 04/16/17 23:50 04/16/17 23:50 04/16/17 23:50 Microbiology 04/15/17 15:35 Mycobacterial Smear (TAN) - Final Toe - Other 04/15/17 15:35 Gram Stain - Final Toe - Other 04/15/17 15:35 Gram Stain - Final Toe - Eswab Laboratory Results 04/16/17 05:20 04/16/17 05:20 04/16/17 04/17/17 04/18/17 05:59 05:59 05:59 Intake Total 970 220 Output Total 1100 1100 Balance -130 -880 min erythema no drainage ICD10 Worksheet Patient Problems: Problems Problem Status Onset Cellulitis of left foot Acute Closed fracture head of femur Acute Osteoarthritis of hip Acute Primary localized osteoarthritis of right hip Acute
[2017-04-17] MEDS: SENNOSIDES/DOCUSATE SODIUM TAB PO SCH ×2 (08:45→20:40)
[2017-04-17] MEDS: POLYETHYLENE GLYCOL 3350 17 GM PKT PO PRN (08:49)
[2017-04-17] MEDS: FUROSEMIDE 20 MG/2 ML VIAL IVP SCH (08:50)
[2017-04-17] MEDS ORDERED: ALTEPLASE 2 MG VIAL IVP PRN (10:08)
--- NOTE | 2017-04-17 10:12 | PDIAF ---
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 PICC Care - Routine: Yes - Labs/Radiology CBC Date: 04/21/17 (Fax to Dr. Sandoval [phone]) CMP Date: 04/21/17 (Fax to Dr. Sandoval [phone]) Call or Fax Lab and Imaging Results to: Needs weekly CBC and CMP thereafter - Follow Up Care Current Providers and Referrals: Taty Hernandes MD [Primary Care Provider] - As per Instructions Troy Sandoval MD [Medical Doctor] - (we will contact patient for follow-up in our clinic)
--- NOTE | 2017-04-17 11:06 | GCON ---
[f rep st] CONSULTATION INFECTIOUS DISEASE CONSULT DATE OF CONSULTATION: 04/17/2017 REFERRING PHYSICIAN: Jass Clemente MD REASON FOR CONSULT: To assist in the management of this 76-year-old gentleman with left foot infection. HISTORY OF PRESENT ILLNESS: The patient is a very pleasant 76-year-old male, whose previous medical history is notable for the followin. Hypothyroidism. 2. Osteoarthritis. 3. History of left hip arthroplasty. 4. History of right hip arthroplasty just [address] Fidel Francis, without complications. 5. History of left foot infection in 2010 (the patient reports only cellulitis ) with group G strep and MSSA. Regarding his present issues, the patient states that he was doing well until last Tuesday, or April 09, when he noticed some erythema of the left great toe , and spreading up his foot and leg. He also had an open wound on the plantar aspect of his left great toe. He was seen in our emergency department on 04/14 , where he was afebrile. An ultrasound was negative for DVT of the left lower extremity. He was started on Ancef, and an MRI of the lower extremity was obtained. This revealed diffuse cellulitis of the left foot, with evidence of early osteomyelitis of the distal phalanx of the left great toe. He was taken to the operating room on 04/[address] Jass Clemente, who performed a left great toe amputation of the distal phalanx. Cultures, so far, are growing 2+ Staph aureus. Blood cultures obtained on admission show no growth. The patient would like to go home, and I am now asked to opine regarding duration of antibiotics and treatment plan. In speaking with the patient today, he is eager to go home. He states that the cellulitis of his left lower extremity seems much better. He denies any antecedent rigors. Presently, he denies headache, nausea, vomiting, sore throat , chest pain, shortness of breath, abdominal pain, diarrhea, burning with urination or other. Other than what was outlined above, 10 systems are reviewed and are negative. Minimal pain in the left lower extremity. PREVIOUS MEDICAL HISTORY: Outlined above. ALLERGIES: No known drug allergies. MEDICATIONS: Presently include Ancef 2 g IV q.8 hours, Synthroid 75 mcg daily, milk of magnesia, oxycodone, MiraLAX, Senokot, Lovenox, Tylenol. SOCIAL HISTORY: The patient lives in [place] with his very supportive . He does not smoke or drink. 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 He enjoys gardening. He is quite active. FAMILY HISTORY: Father of colon cancer in his 60s. PHYSICAL EXAM: VITAL SIGNS: T current 36.6, T max 37, heart rate 87, blood pressure 124/73. HEENT: atraumatic, normocephalic. Pupils equal, round, reactive to light. Extraocular movements are intact. No conjunctival injection. No icterus or petechiae. Mucous membranes moist. No oral lesions noted. Dentition in fair repair. Missing some teeth. NECK: No thyromegaly or palpable thyroid nodules. No cervical or supraclavicular lymphadenopathy. CARDIOVASCULAR: S1, S2. No rubs, gallops or murmurs. LUNGS: No increased respiratory effort. Clear to auscultation bilaterally with no rales, rhonchi, or wheeze. ABDOMEN: Soft. No organomegaly or tenderness to palpation. EXTREMITIES: No muscle belly tenderness. The right lower extremity is unremarkable. The left lower extremity is notable for some lower extremity edema and faint pinkish erythema that extends just below the knee. This is clearly better per the patient. It extends also down the dorsum of the foot to the left great toe, where the patient has sustained an amputation of the distal phalanx. There was suture in place, and the toe was edematous and pink, but there is no discharge from the wound or drainage. He does have tinea pedis between the webbed spaces of most of his toes on the left and right. The patient has a healing scar with Steri-Strips in place anterior to the right hip with no erythema or drainage. The patient has a well-healed scar on the left hip. SKIN: Warm and dry. No obvious rashes. The patient has onychomycosis, particularly of the left hand nails, as well as toenails bilaterally. NEUROLOGIC: He is alert and oriented x3. No focal deficits. Moving all 4 extremities. Sensation diminished in the plantar aspects of both feet. LABORATORY DATA: White blood cell count of 7.2, platelet count of 290, hematocrit 33. BUN and creatinine 10/0.8. Liver function tests on the were fine with the exception of a slightly elevated alkaline phosphatase of 159. Hemoglobin A1c is pending. Microbiology: Blood cultures from the 25th show no growth. A toe swab and toe cultures are growing Staph aureus. Susceptibility is pending. No pathology was sent after the amputation. IMPRESSION: 76-year-old male with osteomyelitis of the distal phalanx of the left great toe as well as significant cellulitis involving the foot and the left lower extremity. This is likely secondary to methicillin-susceptible Staphylococcus aureus, given the patient's microbiology from 2010, and the fact that he is improving on Ancef. At this point in time, I am recommending a 6-week course of continuous infusion Ancef to err on the side of caution, as we have no pathology data to guide us. If there is residual infected bone and the patient is under treated, the infection may recur, causing a bloodstream infection which could seed his new right hip arthroplasty, a calamitous event. Therefore , will play it safe and treat for 6 weeks. He will need meticulous wound care to make sure that the wound does not dehisce. He will also need to treat the tinea pedis, and establish care with a coding director to follow the calluses on his right foot, etc. and trim his toenails moving forward. This was all explained to the patient and his in detail. PLAN: 1. PICC line today. 2. I have spoken with perinatal social worker, who will arrange for continuous infusion Ancef. 3. Obtain ESR and CRP today. 4. Lotrimin for tinea pedis to the web spaces of his toes. 5. Suspect the patient will go home tomorrow or Tuesday. Thank you for consulting Infectious Diseases. We will continue to follow this patient with you. /[id number]/MODL MTDD
--- NOTE | 2017-04-17 11:28 | HOSPPROG ---
Hospitalist Progress Note Assessment/Plan: 76 yo male with recent right hip arthroplasty admitted for left leg and foot cellulitis and MRI c/w left great toe OM. D/W Dr Durham. #Left great toe OM POD #2 toe amp IV ancef x 6 weeks await cultures PICC #left leg and foot cellulitis: improving on Cefazolin #Pedal edema, unclear etiology. TTE stable. was getting lasix will DC and follow #Recent Right Hip Arthroplasty. No acute issues #Constipation cont bowel therapy better Plan: Cont Ancef DC lasix Lovenox for DVT proph D/W SW and RN Dispo tomorrow or Tuesday Subjective: Feeling well. Pain controlled. Up walking. Objective: Vital Signs Temp Pulse Resp BP Pulse Ox 36.8 C 66 16 131/74 H 93 04/17/17 08:00 04/17/17 08:00 04/17/17 08:00 04/17/17 08:00 04/17/17 08:00 Microbiology 04/15/17 15:35 Mycobacterial Smear (TAN) - Final Toe - Other 04/15/17 15:35 Gram Stain - Final Toe - Other 04/15/17 15:35 Gram Stain - Final Toe - Eswab Laboratory Results 04/16/17 05:20 04/16/17 05:20 04/16/17 04/17/17 04/18/17 05:59 05:59 05:59 Intake Total 970 220 Output Total 1100 1100 Balance -130 -880 - Physical Exam Constitutional: no apparent distress, appears nourished, not in pain Eyes: PERRL, anicteric sclera, EOMI Ears, Nose, Mouth, Throat: moist mucous membranes, hearing normal, ears appear normal Cardiovascular: No JVD, No tachycardia, No edema Respiratory: no respiratory distress, no rales or rhonchi, reduced air movement Gastrointestinal: No tenderness, No ascites, No guarding Skin: warm, erythema, No mottled Musculoskeletal: no joint effusions, joint tenderness, generalized weakness Neurologic: AAOx3 Psychiatric: interacting appropriately, not anxious, not encephalopathic, thought process linear ICD10 Worksheet Patient Problems: Problems Problem Status Onset Cellulitis of left foot Acute Closed fracture head of femur Acute Primary localized osteoarthritis of right hip Acute Osteoarthritis of hip Acute
[2017-04-17] MEDS: CLOTRIMAZOLE 1% 15 GM CRTUBE TP SCH ×2 (11:34→20:40)
[2017-04-17 13:44] LABS: HEMATOCRIT 37.5 % (40.0-51.0)
[2017-04-18 03:23] LABS: HEMOGLOBIN A1C 5.6 % (4.0-6.0)
[2017-04-18] MEDS: LEVOTHYROXINE 75 MCG TAB PO SCH (05:08)
[2017-04-18] MEDS: ceFAZolin 2 GM/DEXTROSE 100 ML IV SCH (05:08)
[2017-04-18] MEDS: SENNOSIDES/DOCUSATE SODIUM TAB PO SCH (08:14)
[2017-04-18] MEDS: CLOTRIMAZOLE 1% 15 GM CRTUBE TP SCH (08:15)
--- NOTE | 2017-04-18 09:40 | PCMIDPN ---
Assessment/Plan: 1. Left foot infection secondary to MSSA and group B strep status post amputation of the distal phalanx of great toe: Hopefully the toe will re-surface in pathology, as Dr. Clemente reports that he sent it! Right now it's AWOL. Unless we get that piece of data to guide us, will plan on treating with continuous infusion Ancef for 6 weeks as outlined in my consult. I told the patient that our office will contact him for an appointment. I gave him my card. All questions were answered. Subjective: PICC line inserted yesterday. he is excited to go home. Objective: Ancef 2 g IV q.8 hours via continuous infusion Afebrile Vital Signs Temp Pulse Resp BP Pulse Ox 37.4 C 73 16 129/70 H 93 04/18/17 07:57 04/18/17 07:57 04/18/17 07:57 04/18/17 07:57 04/18/17 07:57 Microbiology 04/15/17 15:35 Gram Stain - Final Toe - Other 04/15/17 15:35 Gram Stain - Final Toe - Eswab 04/15/17 15:35 Mycobacterial Smear (TAN) - Final Toe - Other Laboratory Results 04/17/17 13:35 04/16/17 05:20 04/17/17 04/18/17 04/19/17 05:59 05:59 05:59 Intake Total 220 1970 Output Total 1100 Balance -880 1970 ESR 34 MM/HR (0-20) H 04/17/17 13:35 C-Reactive Protein 24.6 mg/L (<10.0) H 04/17/17 13:35 toe with MSSA and group B strep ICD10 Worksheet Patient Problems: Problems Problem Status Onset Cellulitis of left foot Acute Closed fracture head of femur Acute Osteoarthritis of hip Acute Primary localized osteoarthritis of right hip Acute
--- NOTE | 2017-04-18 09:42 | PDIAF ---
- Diagnosis Diagnosis: Left foot infection Code Status: Full Code - Medication Management Discharge Medications: Medications to Continue on Transfer Acetaminophen [Tylenol ES 500 mg (*)] 500 mg PO BID PRN 04/14/17 [Last Taken 1 TAB] Aspirin [Aspirin 325 mg (*)] 325 mg PO DAILY 04/14/17 [Last Taken 04/14/17] Herbals/Supplements -Info Only 1 ea PO DAILY 04/14/17 [Last Taken Unknown] Levothyroxine [Synthroid 75 mcg (*)] 75 mcg PO DAILY@03 04/14/17 [Last Taken Unknown] Acetaminophen [Tylenol 325mg (*)] 650 mg PO Q4HRS PRN #0 tab 04/18/17 [Last Taken Unknown] Alteplase [Cathflo Activase 2 mg (*)] 2 mg IVP PRN PRN #0 vial 04/18/17 [Last Taken Unknown] Clotrimazole 1% [Lotrimin 1%] 1 azael TP BID cream 04/18/17 [Last Taken Unknown] Polyethylene Glycol 3350 [Miralax 17 gm (*)] 17 gm PO DAILY PRN #0 pkt 04/18/17 [Last Taken Unknown] Sennosides/Docusate Sodium [Senokot-S] 1 - 2 tab PO BID tab 04/18/17 [Last Taken Unknown] ceFAZolin 2 GM/DEXTROSE [Ancef 2 gm (Premix)] 2 gm IV Q8HRS #0 bag 04/18/17 [ Last Taken Unknown] Nursing Unit Manager Antibiotics: Ancef 6 g/24 hours [facility] Antibiotic Stop Date: 06/27/17 Discharge Medications: Refer to the Discharge Home Medication list for PRN reason. PICC Care - Routine: Yes - Orders Services needed: Registered Nurse Diet Recommendation: no restrictions on diet - Labs/Radiology CBC Date: 04/21/17 (Fax to Dr. Sandoval [phone]) CMP Date: 04/21/17 (Fax to Dr. Sandoval [phone]) Call or Fax Lab and Imaging Results to: Needs weekly CBC and CMP thereafter - Follow Up Care Current Providers and Referrals: Taty Hernandes MD [Primary Care Provider] - As per Instructions Troy Sandoval MD [Medical Doctor] - (we will contact patient for follow-up in our clinic)
--- NOTE | 2017-04-18 10:02 | SOAPPROG ---
SOAP Progress Note Assessment/Plan: Assessment: Left great toe infection foot cellultis s/p left great toe distal phalax amputation 04/16 Plan: Home on ance wbat in post op [facility] d/c has f/u appt scheduled already on 04/15/17 08:19 04/16/17 16:06 04/17/17 07:48 04/18/17 10:01 Subjective: no pain Objective: Vital Signs Temp Pulse Resp BP Pulse Ox 37.4 C 73 16 129/70 H 93 04/18/17 07:57 04/18/17 07:57 04/18/17 07:57 04/18/17 07:57 04/18/17 07:57 Microbiology 04/15/17 15:35 Gram Stain - Final Toe - Other 04/15/17 15:35 Gram Stain - Final Toe - Eswab 04/15/17 15:35 Mycobacterial Smear (TAN) - Final Toe - Other Laboratory Results 04/17/17 13:35 04/16/17 05:20 04/17/17 04/18/17 04/19/17 05:59 05:59 05:59 Intake Total 220 1969 Output Total 1100 Balance -880 1970 toe improving ICD10 Worksheet Patient Problems: Problems Problem Status Onset Cellulitis of left foot Acute Closed fracture head of femur Acute Osteoarthritis of hip Acute Primary localized osteoarthritis of right hip Acute
--- NOTE | 2017-04-18 10:34 | GDS ---
[f rep st] DISCHARGE SUMMARY DISCHARGE DIAGNOSES: 1. Left great toe osteomyelitis. 2. Left leg and foot cellulitis. 3. Pedal edema. 4. Recent right hip arthroplasty. 5. Constipation. CONSULTATIONS: 1. Infectious Disease. 2. Dr. Clemente of Orthopedics. 3. STUDIES AND PROCEDURES DONE: 1. Left great toe amputation and debridement. 2. PICC line insertion. PHYSICAL EXAMINATION: GENERAL: The patient is alert. VITAL SIGNS: Afebrile at 37.4, pulse is 73, respiratory rate 16, blood pressure is 129/70, saturating 92% on room air. I have seen and evaluated the patient on the day of disposition, as well as reviewed his care with Wisam Clemente, and Dr. Durham of Infectious Disease. DISPOSITION: The patient will be discharged home with home health care. He is a 76-year-old male, who presented to the emergency room with complaints of left leg, foot pain, and swelling. He was ev aluated and diagnosed with: 1. Left great toe osteomyelitis. During this hospitalization, he received a consultation from Infe ctious Disease, as well as orthopedic surgical intervention with amputation of his left great toe we re performed. He is in the postoperative setting. He will continue IV Ancef for a total of 6 weeks , given the fact that he recently had a right hip arthroplasty. He will be followed by Magui luna in the outpatient setting. 2. Left leg and foot cellulitis. This is improving and responding to Ancef. His cultures have dem onstrated MSSA, and he will continue Ancef in the outpatient setting for a total of 6 weeks. 3. Tinea pedis. The patient will be treated with Lotrimin, and continue this at the time of dispos ition. 4. Pedal edema. The etiology of this is unclear. Echocardiogram was performed. He has tolerated Lasix during this hospitalization. It will not be continued at the time of disposition. I have ins tructed him to elevate, as well as follow with his primary care physician for potential long-term La six treatment. 5. Constipation. This has resolved. DISPOSITION: The patient will be discharged home with home health care, and continue his IV Ancef. PENDING STUDIES: Include final culture results. DISCHARGE MEDICATIONS: Please refer to EMR form. The patient has been initiated on Ancef 2 g q.8 h ours, as well as Lotrimin, and bowel therapy. TIME SPENT: I have spent greater than 35 minutes in the care, coordination, and management of this patient's disposition. /[id number]/MODL
[2017-04-18 11:17] VITALS: BP 120/90; PULSE 111; RESP 20; TEMP 98.7; O2SAT 96
== END 2017-04-18 11:38 | disposition home health service (06) | DRG 504 ==
LOC: F3N 18:35
PROVIDERS: ADMIT Internal Medicine; ATTEND Internal Medicine
PROC: 0Y6Q0Z1 Detachment at Left 1st Toe, High, Open Approach (ICD-10-PCS; principal; 2017-04-15 15:15)
PROC: 02HV33Z Insertion of Infusion Device into Superior Vena Cava, Percutaneous Approach (ICD-10-PCS; 2017-04-17)
DX: M86.172 Other acute osteomyelitis, left ankle and foot (principal); L03.116 Cellulitis of left lower limb; K59.00 Constipation, unspecified; B35.3 Tinea pedis; B95.61 Methicillin susceptible Staphylococcus aureus infection as the cause of diseases classified elsewhere; E03.9 Hypothyroidism, unspecified; Z96.643 Presence of artificial hip joint, bilateral
CPT/HCPCS: 96374; 97161-GP; 97165-GO; A9585; C1751; G8978-GP-CI; G8979-GP-CI; G8980-GP-CI; G8987-GO-CI; G8988-GO-CI; G8989-GO-CI; J0690; J1940; J2250; J2704; J3010